=== PATIENT | female | born 1995 | race Caucasian/White ===

== ENCOUNTER 2017-04-29 13:52 | Emergency (ER) | payer OTHER ==
[~2017-04-29] VITALS: Ht 170.1 cm; Wt 99.8 kg
[~2017-04-29 13:52] MED LIST: BIRTH CONTROL1 EAC1 PO; CIPRO250 MG PO; KEFLEX500 MG PO; MEDROL DOSEPAK4 MG PO; MOTRIN800 MG PO; ZANTAC 150150 MG PO
[2017-04-29] MEDS ORDERED: Tobrex Ophth S2.5 ML OPH (14:18)
== END 2017-04-29 14:27 | disposition home or self-care (01) ==
LOC: ED 13:52
DX: S05.02XA Injury of conjunctiva and corneal abrasion without foreign body, left eye, initial encounter (principal); R03.0 Elevated blood-pressure reading, without diagnosis of hypertension; W50.0XXA Accidental hit or strike by another person, initial encounter; Y93.89 Activity, other specified; Y92.89 Other specified places as the place of occurrence of the external cause; Y99.8 Other external cause status

== ENCOUNTER 2017-08-30 15:27 | Emergency (ER) | payer OTHER ==
[~2017-08-30] VITALS: Wt 99.8 kg
[~2017-08-30 15:27] MED LIST changes: +Tobrex Ophth S2.5 ML OPH
[2017-08-30] MEDS ORDERED: CIPRODEX 0.3%-7.5 ML OT (15:55)
== END 2017-08-30 15:56 | disposition home or self-care (01) ==
LOC: ED 15:27
DX: H60.502 Unspecified acute noninfective otitis externa, left ear (principal); Z98.890 Other specified postprocedural states

== ENCOUNTER 2017-09-01 14:39 | Emergency (ER) | payer OTHER ==
[~2017-09-01] VITALS: Ht 167.6 cm; Wt 99.8 kg
[~2017-09-01 14:39] MED LIST changes: +CIPRODEX 0.3%-7.5 ML OT
[2017-09-01] MEDS ORDERED: NORCO 5-325 TA1 EACH PO (15:05)
[2017-09-01] MEDS ORDERED: CIPRO500 MG PO (15:05)
== END 2017-09-01 14:56 | disposition home or self-care (01) ==
LOC: ED 14:39
DX: H60.92 Unspecified otitis externa, left ear (principal); Z98.890 Other specified postprocedural states

== ENCOUNTER → 2019-02-13 | Outpatient (CLI) | payer OTHER ==
[~2019-02-13] MED LIST changes: +CIPRO500 MG PO; +DOXYCYCLINE100 M3 PO; +FLUOXETINE HCL10 MG PO; +GOOD NEIGHBOR L10 MG PO; +IBU800 M1 PO; +NAPROSYN500 MG PO; +NAPROXEN500 MG PO; +NORCO 5-325 TA1 EACH PO; +Peridex 473 ML473 ML PO
[2019-02-13 16:24] LABS: HEMATOCRIT 39.5 % (37.0-47.0); HEMOGLOBIN 13.1 g/dl (12.0-16.0); MEAN CORPUSCULAR HGB 30.2 pg (27.0-31.0); MEAN CORPUSCULAR HGB CONC 33.2 g/dl (33.0-37.0); MEAN PLATELET VOLUME 12.1 fl (9.6-12.3); RED BLOOD COUNT 4.34 10*6/uL (4.10-5.10); RED CELL DISTRI WIDTH 12.2 % (0-14.5)
[2019-02-13 16:46] LABS: ALBUMIN 4.2 gm/dl (3.1-4.5); ALKALINE PHOSPHATASE 88 U/L (45-117); BUN 7 mg/dl (7-24); CHLORIDE 107 mmol/L (98-107); CHOLESTEROL 118 mg/dL (<200); CREATININE 0.73 mg/dL (0.55-1.02); HDL CHOLESTEROL 48 mg/dl (40-60); LDL CHOLESTEROL 53 mg/dL (9-159); POTASSIUM 3.8 mmol/L (3.5-5.1); SGOT/AST 20 IU/L (3-35); SGPT/ALT 44 U/L (12-78); SODIUM 138 mmol/L (136-145); TOTAL PROTEIN 8.4 gm/dL (6.4-8.2); TRIGLYCERIDES 84 mg/dl (<150); VLDL CHOLESTEROL 17 mg/dL (6-40)
== END | disposition home or self-care (01) ==
LOC: LAB 15:13
PROVIDERS: Family Medicine
DX: E55.9 Vitamin D deficiency, unspecified (principal); R53.83 Other fatigue; R21 Rash and other nonspecific skin eruption; R63.5 Abnormal weight gain

== ENCOUNTER → 2019-06-24 | Outpatient (CLI) | payer OTHER ==
[2019-06-24 15:01] LABS: BASO # 0.1 10*3/uL (0.0-0.1); BASO % 0.7 % (0.0-1.0); EOS # 0.5 10*3/uL (0.0-0.4); EOS % 5.4 % (1.0-4.0); HEMATOCRIT 37.4 % (37.0-47.0); HEMOGLOBIN 12.3 g/dl (12.0-16.0); LYMPH # 2.8 10*3/uL (1.3-4.4); LYMPH % 28.6 % (27.0-41.0); MEAN CELL VOLUME 90.6 fl (81.0-99.0); MEAN CORPUSCULAR HGB 29.8 pg (27.0-31.0); MEAN CORPUSCULAR HGB CONC 32.9 g/dl (33.0-37.0); MEAN PLATELET VOLUME 11.5 fl (9.6-12.3); MONO # 0.6 10*3/uL (0.1-1.0); MONO % 5.9 % (3.0-9.0); NEUT # 5.8 10*3/uL (2.3-7.9); PLATELET COUNT AUTOMATED 297 10*3/uL (130-400); RED BLOOD COUNT 4.13 10*6/uL (4.10-5.10); RED CELL DISTRI WIDTH 12.5 % (0-14.5); WHITE BLOOD COUNT 9.9 10*3/uL (4.8-10.8)
[2019-06-24 15:17] LABS: ALBUMIN 4.1 gm/dl (3.1-4.5); ALKALINE PHOSPHATASE 87 U/L (45-117); BUN 13 mg/dl (7-24); CHLORIDE 105 mmol/L (98-107); CHOLESTEROL 142 mg/dL (<200); CREATININE 0.68 mg/dL (0.55-1.02); HDL CHOLESTEROL 49 mg/dl (40-60); LDL CHOLESTEROL 73 mg/dL (9-159); POTASSIUM 3.9 mmol/L (3.5-5.1); SGOT/AST 26 IU/L (3-35); SGPT/ALT 53 U/L (12-78); SODIUM 140 mmol/L (136-145); TOTAL PROTEIN 7.7 gm/dL (6.4-8.2); TRIGLYCERIDES 98 mg/dl (<150); VLDL CHOLESTEROL 20 mg/dL (6-40)
[2019-06-26 12:06] LABS: FACTOR VIII ACTIVITY 086264 111 % (56-140); VON WILLEBRAND FACTOR AG 87 % (50-200)
[2019-06-26 14:10] LABS: VON WILLEBRAND ACTIVITY 81 % (50-200)
== END | disposition home or self-care (01) ==
LOC: LAB 14:26
PROVIDERS: Family Medicine
DX: R53.83 Other fatigue (principal); F32.9 Major depressive disorder, single episode, unspecified

== ENCOUNTER 2020-02-20 20:46 | Emergency (ER) | payer OTHER ==
[~2020-02-20] VITALS: Ht 170.1 cm; Wt 117.9 kg
== END 2020-02-20 22:47 | disposition home or self-care (01) ==
LOC: ED 20:46
DX: M79.89 Other specified soft tissue disorders (principal); M79.601 Pain in right arm; R60.0 Localized edema; Z79.899 Other long term (current) drug therapy

== ENCOUNTER 2020-05-30 21:29 | Emergency (ER) | payer OTHER ==
[~2020-05-30] VITALS: Ht 170.1 cm; Wt 117.9 kg
== END 2020-05-30 23:10 | disposition home or self-care (01) ==
LOC: ED 21:29
DX: H60.92 Unspecified otitis externa, left ear (principal); Z79.899 Other long term (current) drug therapy

== ENCOUNTER 2020-09-29 12:32 | Emergency (ER) | payer OTHER ==
[~2020-09-29] VITALS: Ht 170.1 cm; Wt 117.9 kg
[2020-09-29] MEDS ORDERED: PERCOCET 5-3251 EACH PO (14:37)
== END 2020-09-29 15:45 | disposition home or self-care (01) ==
LOC: ED 12:32
DX: S93.401A Sprain of unspecified ligament of right ankle, initial encounter (principal); Z79.899 Other long term (current) drug therapy; W00.0XXA Fall on same level due to ice and snow, initial encounter; Y93.89 Activity, other specified; Y92.89 Other specified places as the place of occurrence of the external cause; Y99.8 Other external cause status

== ENCOUNTER → 2020-10-06 | Outpatient (CLI) | payer OTHER ==
[~2020-10-06] MED LIST changes: +PERCOCET 5-3251 EACH PO
== END | disposition home or self-care (01) ==
LOC: RAD 00:43
PROVIDERS: ATTEND Orthopaedic Surgery
DX: S82.844A Nondisplaced bimalleolar fracture of right lower leg, initial encounter for closed fracture (principal); X58.XXXA Exposure to other specified factors, initial encounter; Y93.89 Activity, other specified; Y92.89 Other specified places as the place of occurrence of the external cause; Y99.8 Other external cause status

== ENCOUNTER → 2020-10-13 | Outpatient (CLI) | payer OTHER | END | disposition home or self-care (01) | LOC: ORTHO 13:52 | PROVIDERS: ATTEND Orthopaedic Surgery | DX: S82.844D Nondisplaced bimalleolar fracture of right lower leg, subsequent encounter for closed fracture with routine healing (principal); X58.XXXD Exposure to other specified factors, subsequent encounter ==

== ENCOUNTER → 2020-10-23 | Outpatient (CLI) | payer OTHER | END | disposition home or self-care (01) | LOC: ORTHO 00:23 | PROVIDERS: ATTEND Orthopaedic Surgery | DX: S82.844D Nondisplaced bimalleolar fracture of right lower leg, subsequent encounter for closed fracture with routine healing (principal); X58.XXXD Exposure to other specified factors, subsequent encounter ==

== ENCOUNTER → 2020-11-06 | Outpatient (CLI) | payer OTHER | END | disposition home or self-care (01) | LOC: ORTHO 01:04 | PROVIDERS: ATTEND Orthopaedic Surgery | DX: S82.844D Nondisplaced bimalleolar fracture of right lower leg, subsequent encounter for closed fracture with routine healing (principal); X58.XXXD Exposure to other specified factors, subsequent encounter ==

== ENCOUNTER → 2020-12-21 | Outpatient (CLI) | payer OTHER | END | disposition home or self-care (01) | LOC: ORTHO 00:44 | PROVIDERS: ATTEND Orthopaedic Surgery | DX: S82.844D Nondisplaced bimalleolar fracture of right lower leg, subsequent encounter for closed fracture with routine healing (principal); X58.XXXD Exposure to other specified factors, subsequent encounter ==

== ENCOUNTER → 2021-07-29 | Outpatient (CLI) | payer OTHER | END | disposition home or self-care (01) | LOC: COVID19 15:32 | PROVIDERS: ATTEND Internal Medicine | DX: Z11.52 Encounter for screening for COVID-19 (principal) ==

== ENCOUNTER 2021-11-20 18:00 | Emergency (ER) | payer OTHER ==
[~2021-11-20] VITALS: Ht 170.1 cm; Wt 117.9 kg
[2021-11-20] MEDS ORDERED: AMOXICILLIN500 M2 PO (19:45)
[2021-11-20] MEDS ORDERED: IBUPROFEN600 MG PO (19:45)
== END 2021-11-20 19:52 | disposition home or self-care (01) ==
LOC: ED 18:00
DX: J02.9 Acute pharyngitis, unspecified (principal); Z20.822 Contact with and (suspected) exposure to COVID-19; R50.9 Fever, unspecified; Z79.899 Other long term (current) drug therapy; Z98.890 Other specified postprocedural states

== ENCOUNTER 2022-04-23 15:55 | Emergency (ER) | payer OTHER ==
[~2022-04-23] VITALS: Ht 170.1 cm; Wt 104.3 kg
[~2022-04-23 15:55] MED LIST changes: +AMOXICILLIN500 M2 PO; +IBUPROFEN600 MG PO
[2022-04-23 16:51] LABS: BASO # 0.1 10*3/uL (0.0-0.1); BASO % 0.6 % (0.0-1.0); EOS # 0.4 10*3/uL (0.0-0.4); EOS % 3.7 % (1.0-4.0); HEMATOCRIT 36.8 % (37.0-47.0); LYMPH # 2.2 10*3/uL (1.3-4.4); LYMPH % 23.2 % (27.0-41.0); MEAN CORPUSCULAR HGB 29.3 pg (27.0-31.0); MEAN CORPUSCULAR HGB CONC 32.6 g/dl (33.0-37.0); MEAN PLATELET VOLUME 11.1 fl (9.6-12.3); MONO # 0.7 10*3/uL (0.1-1.0); MONO % 7.6 % (3.0-9.0); NEUT # 6.2 10*3/uL (2.3-7.9); NEUT % 64.6 % (47.0-73.0); PLATELET COUNT AUTOMATED 262 10*3/uL (130-400); RED BLOOD COUNT 4.09 10*6/uL (4.10-5.10); RED CELL DISTRI WIDTH 12.6 % (0-14.5); WHITE BLOOD COUNT 9.6 10*3/uL (4.8-10.8)
[2022-04-23 17:23] LABS: ALKALINE PHOSPHATASE 88 U/L (45-117); BUN 10 mg/dl (7-24); CHLORIDE 112 mmol/L (98-107); CREATININE 0.73 mg/dL (0.55-1.02); POTASSIUM 3.6 mmol/L (3.5-5.1); SGOT/AST 20 IU/L (3-35); SGPT/ALT 47 U/L (12-78); SODIUM 143 mmol/L (136-145); TOTAL PROTEIN 7.3 gm/dL (6.4-8.2)
== END 2022-04-23 18:52 | disposition home or self-care (01) ==
LOC: ED 15:55
PROVIDERS: Physician Assistant
DX: M79.89 Other specified soft tissue disorders (principal); Z98.890 Other specified postprocedural states; Z79.899 Other long term (current) drug therapy

== ENCOUNTER 2022-09-09 02:33 | Emergency (ER) | payer OTHER ==
[~2022-09-09] VITALS: Ht 170.1 cm; Wt 127.0 kg
[2022-09-09 03:11] LABS: BASO # 0.1 10*3/uL (0.0-0.1); BASO % 0.8 % (0.0-1.0); EOS # 0.3 10*3/uL (0.0-0.4); EOS % 3.5 % (1.0-4.0); HEMATOCRIT 37.5 % (37.0-47.0); LYMPH # 2.2 10*3/uL (1.3-4.4); LYMPH % 26.1 % (27.0-41.0); MEAN CELL VOLUME 89.1 fl (81.0-99.0); MEAN CORPUSCULAR HGB 29.2 pg (27.0-31.0); MEAN CORPUSCULAR HGB CONC 32.8 g/dl (33.0-37.0); MEAN PLATELET VOLUME 10.6 fl (9.6-12.3); MONO # 0.7 10*3/uL (0.1-1.0); MONO % 7.9 % (3.0-9.0); NEUT # 5.2 10*3/uL (2.3-7.9); NEUT % 61.2 % (47.0-73.0); PLATELET COUNT AUTOMATED 297 10*3/uL (130-400); RED BLOOD COUNT 4.21 10*6/uL (4.10-5.10); RED CELL DISTRI WIDTH 11.9 % (0-14.5); WHITE BLOOD COUNT 8.6 10*3/uL (4.8-10.8)
[2022-09-09 03:29] LABS: ALKALINE PHOSPHATASE 102 U/L (46-116); BUN 12 mg/dl (9-23); CHLORIDE 104 mmol/L (98-107); CREATININE 0.75 mg/dL (0.55-1.02); LIPASE 25 U/L (12-53); POTASSIUM 3.1 mmol/L (3.4-5.1); SGPT/ALT 120 U/L (10-49); TOTAL PROTEIN 7.6 gm/dL (6.0-8.0)
[2022-09-09 03:35] LABS: BILIRUBIN 2+ (Negative); BLOOD Trace-Lysed (Negative); CLARITY Cloudy (Clear); COLOR Dark Yellow (Yellow); GLUCOSE Negative (Negative); KETONE 2+ (Negative); LEUKO ESTERASE Trace (Negative); NITRITE Negative (Negative); PH 5.5 (4.5-8.0); SPECIFIC GRAVITY >= 1.030 (1.001-1.030)
[2022-09-09 03:59] LABS: EPITHELIAL CELLS 41-50
[2022-09-09 04:00] LABS: BACTERIA 1+; HYALINE CAST 16-20
[2022-09-09] MEDS ORDERED: ONDANSETRON4 MG SL (04:37)
== END 2022-09-09 04:50 | disposition home or self-care (01) ==
LOC: ED 02:33
PROVIDERS: Internal Medicine
DX: B34.9 Viral infection, unspecified (principal); E87.6 Hypokalemia; R79.89 Other specified abnormal findings of blood chemistry; Z98.890 Other specified postprocedural states

== ENCOUNTER 2023-02-18 10:36 | Emergency (ER) | payer OTHER ==
[~2023-02-18] VITALS: Ht 170.1 cm; Wt 104.3 kg
[~2023-02-18 10:36] MED LIST changes: +ONDANSETRON4 MG SL
[2023-02-18] MEDS ORDERED: MELOXICAM10 MG PO (11:39)
== END 2023-02-18 11:48 | disposition home or self-care (01) ==
LOC: ED 10:36
DX: S93.601A Unspecified sprain of right foot, initial encounter (principal); Z79.899 Other long term (current) drug therapy; Z98.890 Other specified postprocedural states; X58.XXXA Exposure to other specified factors, initial encounter; Y93.89 Activity, other specified; Y92.512 Supermarket, store or market as the place of occurrence of the external cause; Y99.8 Other external cause status

== ENCOUNTER → 2023-03-22 | Outpatient (CLI) | payer OTHER ==
[~2023-03-22] MED LIST changes: +MELOXICAM10 MG PO
[2023-03-22 12:36] LABS: HEMATOCRIT 37.8 % (37.0-47.0); MEAN CELL VOLUME 89.2 fl (81.0-99.0); MEAN CORPUSCULAR HGB 29.2 pg (27.0-31.0); MEAN CORPUSCULAR HGB CONC 32.8 g/dl (33.0-37.0); RED BLOOD COUNT 4.24 10*6/uL (4.10-5.10); RED CELL DISTRI WIDTH 12.1 % (0-14.5); WHITE BLOOD COUNT 8.8 10*3/uL (4.8-10.8)
[2023-03-22 13:07] LABS: ALKALINE PHOSPHATASE 87 U/L (46-116); BUN 9 mg/dl (9-23); CHLORIDE 106 mmol/L (98-107); FREE T4 1.06 ng/dl (0.89-1.76); POTASSIUM 3.9 mmol/L (3.4-5.1); SGPT/ALT 29 U/L (10-49); TOTAL PROTEIN 7.6 gm/dL (6.0-8.0)
== END | disposition home or self-care (01) ==
LOC: LAB 12:13
PROVIDERS: ATTEND Family Medicine
DX: Z00.00 Encounter for general adult medical examination without abnormal findings (principal); M79.10 Myalgia, unspecified site; M25.50 Pain in unspecified joint; E55.9 Vitamin D deficiency, unspecified; R53.83 Other fatigue

== ENCOUNTER 2023-07-23 10:34 | Emergency (ER) | payer OTHER ==
[~2023-07-23] VITALS: Ht 170.1 cm; Wt 108.9 kg
[~2023-07-23 10:34] MED LIST changes: +CEFDINIR300 MG PO; +CIPROFLOXACIN HC5 ML OPH
[2023-07-23] MEDS ORDERED: AMOX-CLAV 875-1 EACH PO (11:47)
[2023-07-23] MEDS ORDERED: ONDANSETRON4 MG SL (11:47)
[2023-07-23] MEDS ORDERED: CIPROFLOX-DEXA7.5 ML OT (11:47)
== END 2023-07-23 11:51 | disposition home or self-care (01) ==
LOC: ED 10:34
DX: H60.92 Unspecified otitis externa, left ear (principal); Z98.890 Other specified postprocedural states

== ENCOUNTER → 2023-08-10 | Outpatient (CLI) | payer OTHER ==
[~2023-08-10] MED LIST changes: +AMOX-CLAV 875-1 EACH PO; +CIPROFLOX-DEXA7.5 ML OT
[2023-08-10 10:40] LABS: HEMATOCRIT 39.2 % (37.0-47.0); MEAN CELL VOLUME 90.7 fl (81.0-99.0); MEAN CORPUSCULAR HGB 29.4 pg (27.0-31.0); MEAN CORPUSCULAR HGB CONC 32.4 g/dl (33.0-37.0); RED BLOOD COUNT 4.32 10*6/uL (4.10-5.10); RED CELL DISTRI WIDTH 12.2 % (0-14.5); WHITE BLOOD COUNT 10.6 10*3/uL (4.8-10.8)
[2023-08-10 11:14] LABS: ALKALINE PHOSPHATASE 85 U/L (46-116); BUN 7 mg/dl (9-23); CHLORIDE 105 mmol/L (98-107); POTASSIUM 3.9 mmol/L (3.4-5.1); SGPT/ALT 33 U/L (5-49); TOTAL PROTEIN 7.7 gm/dL (6.0-8.0)
== END | disposition home or self-care (01) ==
LOC: LAB 10:00
PROVIDERS: ATTEND Family Medicine
DX: K76.0 Fatty (change of) liver, not elsewhere classified (principal); E74.00 Glycogen storage disease, unspecified; F41.1 Generalized anxiety disorder

== ENCOUNTER → 2023-08-11 | Outpatient (CLI) | payer MEDICAID | END | disposition home or self-care (01) | LOC: US 10:02 | PROVIDERS: ATTEND Family Medicine | DX: R10.31 Right lower quadrant pain (principal) ==

== ENCOUNTER → 2023-09-23 | Outpatient (CLI) | payer OTHER | END | disposition home or self-care (01) | LOC: LAB 07:35 | PROVIDERS: ATTEND Family Medicine | DX: Z32.01 Encounter for pregnancy test, result positive (principal) ==

== ENCOUNTER → 2023-09-25 | Outpatient (CLI) | payer OTHER | END | disposition home or self-care (01) | LOC: LAB 08:17 | PROVIDERS: ATTEND Family Medicine | DX: Z32.01 Encounter for pregnancy test, result positive (principal) ==

== ENCOUNTER → 2023-11-28 | Outpatient (CLI) | payer OTHER ==
[2023-11-28 09:20] LABS: HEMATOCRIT 35.5 % (37.0-47.0); MEAN CELL VOLUME 92.7 fl (81.0-99.0); MEAN CORPUSCULAR HGB 28.5 pg (27.0-31.0); MEAN CORPUSCULAR HGB CONC 30.7 g/dl (33.0-37.0); MEAN PLATELET VOLUME 10.7 fl (9.6-12.3); RED BLOOD COUNT 3.83 10*6/uL (4.10-5.10); WHITE BLOOD COUNT 9.2 10*3/uL (4.8-10.8)
[2023-11-28 10:05] LABS: ALKALINE PHOSPHATASE 105 U/L (46-116); BUN 10 mg/dl (9-23); CHLORIDE 104 mmol/L (98-107); POTASSIUM 4.1 mmol/L (3.4-5.1); SGPT/ALT 39 U/L (5-49); TOTAL PROTEIN 7.2 gm/dL (6.0-8.0)
== END ==
LOC: LAB 08:41
PROVIDERS: ATTEND Family Medicine
DX: O03.39 Incomplete spontaneous abortion with other complications (principal); R53.83 Other fatigue; D64.9 Anemia, unspecified

== ENCOUNTER → 2024-02-08 | Outpatient (CLI) | payer OTHER ==
[2024-02-08 09:20] LABS: MEAN CELL VOLUME 89.8 fl (81.0-99.0); MEAN CORPUSCULAR HGB 28.8 pg (27.0-31.0); MEAN CORPUSCULAR HGB CONC 32.1 g/dl (33.0-37.0); MEAN PLATELET VOLUME 11.3 fl (9.6-12.3); RED BLOOD COUNT 4.23 10*6/uL (4.10-5.10); RED CELL DISTRI WIDTH 12.1 % (0-14.5); WHITE BLOOD COUNT 8.5 10*3/uL (4.8-10.8)
[2024-02-08 09:52] LABS: ALKALINE PHOSPHATASE 108 U/L (46-116); BUN 8 mg/dl (9-23); CHLORIDE 102 mmol/L (98-107); CHOLESTEROL 185 mg/dL (<200); FREE T4 1.61 ng/dl (0.89-1.76); LDL CHOLESTEROL 95 mg/dL (9-159); POTASSIUM 3.7 mmol/L (3.4-5.1); SGPT/ALT 20 U/L (5-49); TOTAL PROTEIN 7.6 gm/dL (6.0-8.0); TRIGLYCERIDES 154 mg/dl (<150)
== END | disposition home or self-care (01) ==
LOC: LAB 08:29
PROVIDERS: ATTEND Family Medicine
DX: M25.561 Pain in right knee (principal); R53.83 Other fatigue; R60.9 Edema, unspecified; M79.10 Myalgia, unspecified site; D72.819 Decreased white blood cell count, unspecified; R63.5 Abnormal weight gain

== ENCOUNTER → 2024-04-02 | Outpatient (CLI) | payer OTHER ==
[2024-04-03 15:07] LABS: ENDOMYSIAL ANTIBODY IgA Negative (Negative)
[2024-04-03 17:07] LABS: t-TRANSGLUTAMINASE (tTG) IGA <2 U/mL (0-3); t-TRANSGLUTAMINASE (tTG) IgG 9 U/mL (0-5)
== END | disposition home or self-care (01) ==
LOC: US 01:02 → LAB 01:02 → US 08:00
PROVIDERS: ATTEND Internal Medicine
DX: K80.20 Calculus of gallbladder without cholecystitis without obstruction (principal); K76.0 Fatty (change of) liver, not elsewhere classified; R16.1 Splenomegaly, not elsewhere classified; R16.0 Hepatomegaly, not elsewhere classified

== ENCOUNTER → 2024-04-08 | Outpatient (CLI) | payer OTHER | END | disposition home or self-care (01) | LOC: NM 01:19 | PROVIDERS: ATTEND Internal Medicine | DX: R10.9 Unspecified abdominal pain (principal) ==